=== PATIENT | male | born 1935 | race Caucasian/White ===

== ENCOUNTER 2018-12-12 19:42 | Emergency (ER) | payer OTHER ==
[~2018-12-12] VITALS: Ht 177.8 cm; Wt 93.0 kg
== END 2018-12-13 15:26 | disposition home or self-care (01) ==
LOC: ER 19:42
DX: J44.1 Chronic obstructive pulmonary disease with (acute) exacerbation (principal); E11.65 Type 2 diabetes mellitus with hyperglycemia; R05 Cough; R06.02 Shortness of breath; I16.0 Hypertensive urgency; I10 Essential (primary) hypertension

== ENCOUNTER 2018-12-15 12:03 | Inpatient (IN) | payer OTHER ==
[~2018-12-15] VITALS: Ht 177.8 cm; Wt 93.0 kg
== END 2018-12-24 13:56 | disposition home or self-care (01) | DRG 190 ==
LOC: ER 12:03 → MEDJ 21:35 → SURH 21:35 → MEDI 21:35 → SURH 23:49 → MEDI 12-18 11:02 → MEDJ 12-22 16:42
PROVIDERS: ADMIT Internal Medicine
PROC: BW24ZZZ Computerized Tomography (CT Scan) of Chest and Abdomen (ICD-10-PCS; principal; 2018-12-15)
PROC: 3E0F7GC Introduction of Other Therapeutic Substance into Respiratory Tract, Via Natural or Artificial Opening (ICD-10-PCS; 2018-12-15)
PROC: 4A033R1 Measurement of Arterial Saturation, Peripheral, Percutaneous Approach (ICD-10-PCS; 2018-12-15)
PROC: 4A12X4Z Monitoring of Cardiac Electrical Activity, External Approach (ICD-10-PCS; 2018-12-18)
DX: J44.1 Chronic obstructive pulmonary disease with (acute) exacerbation (principal); J80 Acute respiratory distress syndrome; J45.41 Moderate persistent asthma with (acute) exacerbation; B37.89 Other sites of candidiasis; J10.1 Influenza due to other identified influenza virus with other respiratory manifestations; E11.40 Type 2 diabetes mellitus with diabetic neuropathy, unspecified; Z79.4 Long term (current) use of insulin; E78.00 Pure hypercholesterolemia, unspecified; E03.9 Hypothyroidism, unspecified; D35.02 Benign neoplasm of left adrenal gland; D35.01 Benign neoplasm of right adrenal gland; B96.29 Other Escherichia coli [E. coli] as the cause of diseases classified elsewhere